=== PATIENT | male | born 1945 | race Caucasian/White ===

== ENCOUNTER 2017-05-06 19:24 | Inpatient (IN) | payer OTHER ==
[~2017-05-06] VITALS: Ht 172.7 cm; Wt 61.3 kg
[~2017-05-06 19:24] MED LIST: COLACE100 MG PO; CYCLOBENZAPRINE10 M3 PO; DEC150 PO; DILANTIN100 MG PO; FERROUS SULF15 MG/M1 PO; FERROUS SULFAT325 M2 PO; FOLIC ACID1 MG PO; HYDROCODONE/ACE1 TA2 PO; LOVASTATIN20 MG PO; MET2.5 PO; MEV20 PO; MSC30 PO; PROTONIX40 MG PO; ROC0.5 PO; TRAMADOL HCL50 MG PO
[2017-05-06 20:23] LABS: BASOPHIL % 1.1 % (0-2); PLATELET COUNT 263 x10^3mcL (130-400); RED CELL DISTRIBUTION WIDTH 14.3 % (11.5-14.5)
[2017-05-06 20:33] LABS: CALCIUM 7.8 mg/dL (8.5-10.1); CARBON DIOXIDE 21.8 mmol/L (21-32); CHLORIDE SERUM 100 mmol/L (98-107); CREATININE SERUM 0.9 mg/dL (0.7-1.3); GLUCOSE SERUM 82 mg/dL (74-106); SODIUM SERUM 131 mmol/L (136-145)
[2017-05-06 20:40] LABS: ALBUMIN 2.4 g/dL (3.4-5.0); ALKALINE PHOSPHATASE 174 U/L (46-116); ALT/SGPT 63 U/L (16-63); AST/SGOT 88 U/L (15-37); BILIRUBIN TOTAL 0.51 mg/dL (0.20-1.00); CHOLESTEROL 111 mg/dL (<200); HDL CHOLESTEROL 38 mg/dL (40-60); TOTAL PROTEIN, SERUM 6.5 g/dL (6.4-8.2)
[2017-05-06 21:12] LABS: T4(THYROXINE) 6.2 ug/dL (4.7-13.3)
[2017-05-06 21:37] LABS: UA SPECIFIC GRAVITY 1.025 (1.005-1.035); microscopic required? YES; urine erythrocyte NEGATIVE (NEGATIVE)
[2017-05-06 22:25] VITALS: BP 98/51
[2017-05-06 22:26] LABS: MAGNESIUM 1.8 mg/dL (1.8-2.4); PHOSPHOROUS 3.6 mg/dL (2.5-4.9)
[2017-05-06 22:37] LABS: AMPHETAMINE QUAL UR NONE DETECTED (NEG <=1000)
[2017-05-06 23:10] VITALS: BP 94/52
[2017-05-07] VITALS (7 sets, daily range): BP systolic 75–133; BP diastolic 44–61
[2017-05-07 05:40] LABS: BASOPHIL % 0.6 % (0-2); PLATELET COUNT 253 x10^3mcL (130-400); RED CELL DISTRIBUTION WIDTH 13.6 % (11.5-14.5)
[2017-05-07 05:51] LABS: CALCIUM 7.7 mg/dL (8.5-10.1); CARBON DIOXIDE 23.6 mmol/L (21-32); CHLORIDE SERUM 104 mmol/L (98-107); CREATININE SERUM 0.9 mg/dL (0.7-1.3); GLUCOSE SERUM 78 mg/dL (74-106); MAGNESIUM 1.8 mg/dL (1.8-2.4); PHOSPHOROUS 3.2 mg/dL (2.5-4.9); POTASSIUM SERUM 3.3 mmol/L (3.5-5.1); SODIUM SERUM 133 mmol/L (136-145)
[2017-05-07] MEDS ORDERED: ZYTIGA250 MG PO (12:57)
[2017-05-07] MEDS ORDERED: PREDNISONE2.5 MG PO (12:57)
[2017-05-07] MEDS ORDERED: APAP/HYDROCODON1 T15 PO (12:59)
[2017-05-07] MEDS ORDERED: CASODEX50 MG PO (13:00)
[2017-05-07] MEDS ORDERED: DIL100 PO (13:01)
[2017-05-07] MEDS ORDERED: ROCALTROL0.5 MCG PO (13:03)
[2017-05-07] MEDS ORDERED: NATURE'S BLEND F1 MG PO (13:05)
[2017-05-08 05:32] LABS: BASOPHIL % 0.7 % (0-2); PLATELET COUNT 190 x10^3mcL (130-400)
[2017-05-08 05:49] LABS: CALCIUM 7.6 mg/dL (8.5-10.1); CARBON DIOXIDE 21.8 mmol/L (21-32); CHLORIDE SERUM 106 mmol/L (98-107); CREATININE SERUM 0.7 mg/dL (0.7-1.3); GLUCOSE SERUM 63 mg/dL (74-106); SODIUM SERUM 137 mmol/L (136-145)
[2017-05-08 06:47] VITALS: BP 120/60
[2017-05-08 08:35] VITALS: BP 128/62
[2017-05-08 13:52] VITALS: BP 134/65
[2017-05-08 17:43] VITALS: BP 116/64
[2017-05-08 20:32] VITALS: BP 114/53
[2017-05-09 05:23] VITALS: BP 129/69
[2017-05-09 06:26] LABS: CALCIUM 7.8 mg/dL (8.5-10.1); CARBON DIOXIDE 22.9 mmol/L (21-32); CHLORIDE SERUM 106 mmol/L (98-107); CREATININE SERUM 0.7 mg/dL (0.7-1.3); GLUCOSE SERUM 86 mg/dL (74-106); POTASSIUM SERUM 3.3 mmol/L (3.5-5.1); SODIUM SERUM 135 mmol/L (136-145)
[2017-05-09 06:37] LABS: BASOPHIL % 0.3 % (0-2); PLATELET COUNT 202 x10^3mcL (130-400)
[2017-05-09 09:57] VITALS: BP 128/69
[2017-05-09 14:09] VITALS: BP 141/71
[2017-05-09 18:09] VITALS: BP 122/82
[2017-05-09 19:43] VITALS: Ht 172.7 cm; Wt 61.3 kg
[2017-05-09 22:06] VITALS: BP 102/60
[2017-05-10 05:43] VITALS: BP 126/66
[2017-05-10 06:21] LABS: BASOPHIL % 0.2 % (0-2); PLATELET COUNT 172 x10^3mcL (130-400); RED CELL DISTRIBUTION WIDTH 13.6 % (11.5-14.5)
[2017-05-10 06:28] LABS: CALCIUM 7.6 mg/dL (8.5-10.1); CHLORIDE SERUM 105 mmol/L (98-107); CREATININE SERUM 0.7 mg/dL (0.7-1.3); GLUCOSE SERUM 74 mg/dL (74-106); POTASSIUM SERUM 3.1 mmol/L (3.5-5.1); SODIUM SERUM 134 mmol/L (136-145)
[2017-05-10 09:21] VITALS: BP 139/64
[2017-05-10 13:10] VITALS: BP 107/68
[2017-05-10 17:58] VITALS: BP 143/67
[2017-05-10 22:04] VITALS: BP 142/79
[2017-05-11 05:46] VITALS: BP 150/53
[2017-05-11 06:24] LABS: CARBON DIOXIDE 22.9 mmol/L (21-32); CHLORIDE SERUM 102 mmol/L (98-107); CREATININE SERUM 0.7 mg/dL (0.7-1.3); GLUCOSE SERUM 126 mg/dL (74-106); POTASSIUM SERUM 3.1 mmol/L (3.5-5.1); SODIUM SERUM 132 mmol/L (136-145)
[2017-05-11 06:37] LABS: PLATELET COUNT 194 x10^3mcL (130-400); RED CELL DISTRIBUTION WIDTH 13.7 % (11.5-14.5)
[2017-05-11 09:41] LABS: BAND NEUTROPHIL 3 % (0-10); BASOPHIL 0 % (0-2); MONOCYTE 1 % (0-7); SEGMENTED NEUTROPHILS 93 % (37-75)
[2017-05-11 09:42] LABS: PLATELET MORPHOLOGY PLATELETS NORMAL
[2017-05-11 10:27] VITALS: BP 113/66
[2017-05-11 14:27] VITALS: BP 118/68
[2017-05-11 20:57] VITALS: BP 104/67
[2017-05-12 05:30] VITALS: BP 100/64
[2017-05-12 06:11] LABS: PLATELET COUNT 141 x10^3mcL (130-400); RED CELL DISTRIBUTION WIDTH 13.7 % (11.5-14.5)
[2017-05-12 06:13] LABS: CALCIUM 8.4 mg/dL (8.5-10.1); CARBON DIOXIDE 26.6 mmol/L (21-32); CHLORIDE SERUM 103 mmol/L (98-107); CREATININE SERUM 0.9 mg/dL (0.7-1.3); GLUCOSE SERUM 150 mg/dL (74-106); POTASSIUM SERUM 4.1 mmol/L (3.5-5.1); SODIUM SERUM 134 mmol/L (136-145)
[2017-05-12 09:02] VITALS: BP 148/67
[2017-05-12 11:37] LABS: BAND NEUTROPHIL 8 % (0-10); BASOPHIL 0 % (0-2); MONOCYTE 6 % (0-7); SEGMENTED NEUTROPHILS 83 % (37-75)
[2017-05-12 11:38] LABS: PLATELET MORPHOLOGY PLATELETS NORMAL; rbc morphology (normal/abnorm) NORMAL (NORMAL)
[2017-05-12 12:57] VITALS: BP 115/64
[2017-05-12 16:36] VITALS: BP 124/64
[2017-05-12 16:37] VITALS: BP 124/64
[2017-05-12 21:01] VITALS: BP 130/82
[2017-05-13 05:28] VITALS: BP 128/72
[2017-05-13 06:24] LABS: CALCIUM 8.3 mg/dL (8.5-10.1); CARBON DIOXIDE 27.3 mmol/L (21-32); CHLORIDE SERUM 104 mmol/L (98-107); CREATININE SERUM 0.8 mg/dL (0.7-1.3); GLUCOSE SERUM 132 mg/dL (74-106); POTASSIUM SERUM 4.5 mmol/L (3.5-5.1); SODIUM SERUM 138 mmol/L (136-145)
[2017-05-13 09:12] VITALS: BP 127/76
[2017-05-13 13:27] VITALS: BP 120/80
[2017-05-13 18:00] VITALS: BP 117/62
[2017-05-13 21:28] VITALS: BP 123/69
[2017-05-14 06:08] VITALS: BP 118/70
[2017-05-14 06:15] LABS: PLATELET COUNT 206 x10^3mcL (130-400); RED CELL DISTRIBUTION WIDTH 14.3 % (11.5-14.5)
[2017-05-14 06:24] LABS: CALCIUM 8.5 mg/dL (8.5-10.1); CARBON DIOXIDE 27.6 mmol/L (21-32); CHLORIDE SERUM 102 mmol/L (98-107); CREATININE SERUM 0.8 mg/dL (0.7-1.3); GLUCOSE SERUM 91 mg/dL (74-106); POTASSIUM SERUM 4.5 mmol/L (3.5-5.1); SODIUM SERUM 136 mmol/L (136-145)
[2017-05-14 10:28] VITALS: BP 132/78
[2017-05-14 13:42] LABS: BAND NEUTROPHIL 1 % (0-10); BASOPHIL 0 % (0-2); MONOCYTE 8 % (0-7); SEGMENTED NEUTROPHILS 85 % (37-75)
[2017-05-14 13:44] LABS: PLATELET MORPHOLOGY PLATELETS DECREASED; rbc morphology (normal/abnorm) ABNORMAL (NORMAL)
[2017-05-14] MEDS ORDERED: CLINDAMYCIN HC300 MG PO (15:37)
[2017-05-14 16:23] VITALS: BP 132/78
== END 2017-05-14 18:16 | disposition home or self-care (01) | DRG 871 ==
LOC: ED 19:24 → DU 21:23 → MU 21:23 → IC 21:23 → DU 22:14 → IC 05-07 00:47 → DU 05-08 05:50 → MU 05-14 07:19
PROVIDERS: Emergency Medicine; Family Medicine; ADMIT Family Medicine
PROC: 05HN33Z Insertion of Infusion Device into Left Internal Jugular Vein, Percutaneous Approach (ICD-10-PCS; principal; 2017-05-07)
PROC: B544ZZA Ultrasonography of Left Jugular Veins, Guidance (ICD-10-PCS; 2017-05-07)
DX: A41.9 Sepsis, unspecified organism (principal); R65.21 Severe sepsis with septic shock; J69.0 Pneumonitis due to inhalation of food and vomit; N17.0 Acute kidney failure with tubular necrosis; E43 Unspecified severe protein-calorie malnutrition; N39.0 Urinary tract infection, site not specified; E87.1 Hypo-osmolality and hyponatremia; C78.00 Secondary malignant neoplasm of unspecified lung; C79.51 Secondary malignant neoplasm of bone; E86.0 Dehydration; E87.6 Hypokalemia; C61 Malignant neoplasm of prostate; J44.9 Chronic obstructive pulmonary disease, unspecified; D64.9 Anemia, unspecified; M06.9 Rheumatoid arthritis, unspecified; I10 Essential (primary) hypertension; G40.909 Epilepsy, unspecified, not intractable, without status epilepticus; Z68.20 Body mass index [BMI] 20.0-20.9, adult; Z87.891 Personal history of nicotine dependence; Z86.73 Personal history of transient ischemic attack (TIA), and cerebral infarction without residual deficits
CPT/HCPCS: 36556; 36600; 83880; 97110-GP; 97116-GP; 97530-GP; J0696; J1642; J1885; J1940; J2060; J2270; J2543; J2920; J2930; J3480; J3490; J7030; J7040; J7620; J7633; J8610; Q0092; Q9967

== ENCOUNTER 2018-10-02 15:38 | Inpatient (IN) | payer OTHER ==
[~2018-10-02] VITALS: Ht 172.7 cm; Wt 64.4 kg
[~2018-10-02 15:38] MED LIST changes: +APAP/HYDROCODON1 T15 PO; +CASODEX50 MG PO; +CLINDAMYCIN HC300 MG PO; +DIL100 PO; +NATURE'S BLEND F1 MG PO; +PREDNISONE2.5 MG PO; +ROCALTROL0.5 MCG PO; +ZYTIGA250 MG PO
[2018-10-02 15:53] VITALS: Ht 172.7 cm; Wt 64.4 kg
[2018-10-02 17:18] LABS: PLATELET COUNT 190 x10^3mcL (130-400); RED CELL DISTRIBUTION WIDTH 17.7 % (11.5-14.5)
[2018-10-02 17:37] LABS: ALKALINE PHOSPHATASE 134 U/L (46-116); ALT/SGPT 12 U/L (16-63); AST/SGOT 32 U/L (15-37); BILIRUBIN TOTAL 0.8 mg/dL (0.20-1.00); CALCIUM 7.9 mg/dL (8.5-10.1); CARBON DIOXIDE 20.9 mmol/L (21-32); CHLORIDE SERUM 96 mmol/L (98-107); CREATININE SERUM 2.2 mg/dL (0.7-1.3); GLUCOSE SERUM 70 mg/dL (74-106); SODIUM SERUM 132 mmol/L (136-145)
[2018-10-02 17:42] LABS: POTASSIUM SERUM 2.6 mmol/L (3.5-5.1); TOTAL PROTEIN, SERUM 5.9 g/dL (6.4-8.2)
[2018-10-02 18:30] LABS: microscopic required? YES; urine erythrocyte 3+ (NEGATIVE)
[2018-10-02 19:52] LABS: MAGNESIUM 1.7 mg/dL (1.8-2.4); PHOSPHOROUS 4.3 mg/dL (2.5-4.9)
[2018-10-02 20:44] VITALS: BP 106/59
[2018-10-02] MEDS ORDERED: FLOMAX0.4 MG PO (20:58)
[2018-10-03 01:20] VITALS: BP 106/59
[2018-10-03 05:54] VITALS: BP 136/68
[2018-10-03 06:36] LABS: CALCIUM 7.7 mg/dL (8.5-10.1); CHLORIDE SERUM 98 mmol/L (98-107); CREATININE SERUM 2.2 mg/dL (0.7-1.3); GLUCOSE SERUM 70 mg/dL (74-106); MAGNESIUM 1.5 mg/dL (1.8-2.4); PHOSPHOROUS 4.1 mg/dL (2.5-4.9); POTASSIUM SERUM 3.1 mmol/L (3.5-5.1); SODIUM SERUM 133 mmol/L (136-145)
[2018-10-03 06:44] LABS: PLATELET COUNT 212 x10^3mcL (130-400)
[2018-10-03 07:16] LABS: RED CELL DISTRIBUTION WIDTH 18.1 % (11.5-14.5)
[2018-10-03 08:11] VITALS: BP 128/74
[2018-10-03 09:05] LABS: BAND NEUTROPHIL 4 % (0-10); SEGMENTED NEUTROPHILS 86 % (37-75)
[2018-10-03 09:08] LABS: burr cell (echinocyte) 1+; rbc morphology (normal/abnorm) ABNORMAL (NORMAL)
[2018-10-03 12:11] VITALS: BP 117/65
[2018-10-03 16:43] VITALS: BP 101/47
[2018-10-03 21:48] VITALS: BP 96/47
[2018-10-04 05:29] VITALS: BP 101/39
[2018-10-04 06:57] LABS: PLATELET COUNT 133 x10^3mcL (130-400)
[2018-10-04 07:00] LABS: RED CELL DISTRIBUTION WIDTH 18.5 % (11.5-14.5)
[2018-10-04 07:11] LABS: CALCIUM 7.6 mg/dL (8.5-10.1); CARBON DIOXIDE 20.3 mmol/L (21-32); CHLORIDE SERUM 101 mmol/L (98-107); CREATININE SERUM 2.3 mg/dL (0.7-1.3); GLUCOSE SERUM 94 mg/dL (74-106); MAGNESIUM 1.8 mg/dL (1.8-2.4); PHOSPHOROUS 3.9 mg/dL (2.5-4.9); SODIUM SERUM 134 mmol/L (136-145)
[2018-10-04 07:48] LABS: POTASSIUM SERUM 2.8 mmol/L (3.5-5.1)
[2018-10-04 10:01] LABS: BAND NEUTROPHIL 2 % (0-10); SEGMENTED NEUTROPHILS 86 % (37-75); burr cell (echinocyte) 1+; rbc morphology (normal/abnorm) ABNORMAL (NORMAL)
[2018-10-04 10:02] LABS: PLATELET MORPHOLOGY PLATELETS DECREASED
[2018-10-04 10:20] VITALS: BP 106/66
[2018-10-04 13:55] VITALS: BP 93/49
[2018-10-04 18:25] VITALS: BP 100/57
[2018-10-04 22:16] VITALS: BP 110/52
[2018-10-05 05:34] VITALS: BP 128/48
[2018-10-05 07:39] LABS: CARBON DIOXIDE 19.9 mmol/L (21-32); CHLORIDE SERUM 99 mmol/L (98-107); CREATININE SERUM 2.3 mg/dL (0.7-1.3); GLUCOSE SERUM 102 mg/dL (74-106); MAGNESIUM 1.9 mg/dL (1.8-2.4); PHOSPHOROUS 3.2 mg/dL (2.5-4.9); SODIUM SERUM 131 mmol/L (136-145)
[2018-10-05 07:51] LABS: POTASSIUM SERUM 2.4 mmol/L (3.5-5.1)
[2018-10-05 08:33] LABS: PLATELET COUNT 92 x10^3mcL (130-400); RED CELL DISTRIBUTION WIDTH 16.2 % (11.5-14.5)
[2018-10-05 08:34] LABS: BASOPHIL % 0 % (0-2)
[2018-10-05 10:02] VITALS: BP 106/55
[2018-10-05 12:51] VITALS: BP 105/53
[2018-10-05 18:00] VITALS: BP 101/50
[2018-10-05 21:36] VITALS: BP 111/43
[2018-10-06 06:16] VITALS: BP 115/51
[2018-10-06 07:17] LABS: CALCIUM 8.7 mg/dL (8.5-10.1); CARBON DIOXIDE 21.5 mmol/L (21-32); CHLORIDE SERUM 101 mmol/L (98-107); CREATININE SERUM 2.2 mg/dL (0.7-1.3); GLUCOSE SERUM 101 mg/dL (74-106); SODIUM SERUM 133 mmol/L (136-145)
[2018-10-06 07:20] LABS: PLATELET COUNT 64 x10^3mcL (130-400); POTASSIUM SERUM 2.9 mmol/L (3.5-5.1); RED CELL DISTRIBUTION WIDTH 16.9 % (11.5-14.5)
[2018-10-06 10:18] VITALS: BP 114/55
[2018-10-06 13:13] LABS: SEGMENTED NEUTROPHILS 80 % (37-75)
[2018-10-06 13:14] LABS: MONOCYTE 2 % (0-7); rbc morphology (normal/abnorm) ABNORMAL (NORMAL)
[2018-10-06 13:15] LABS: PLATELET MORPHOLOGY PLATELETS DECREASED
[2018-10-06 13:46] VITALS: BP 109/53
[2018-10-06 18:05] VITALS: BP 106/54
[2018-10-06 21:07] VITALS: BP 123/69
[2018-10-07 05:44] VITALS: BP 116/56
[2018-10-07 07:31] LABS: CALCIUM 8.5 mg/dL (8.5-10.1); CARBON DIOXIDE 21.4 mmol/L (21-32); CHLORIDE SERUM 101 mmol/L (98-107); GLUCOSE SERUM 101 mg/dL (74-106); POTASSIUM SERUM 3.2 mmol/L (3.5-5.1); SODIUM SERUM 128 mmol/L (136-145)
[2018-10-07 08:42] VITALS: BP 124/80
[2018-10-07 11:27] LABS: SEGMENTED NEUTROPHILS 59 % (37-75)
[2018-10-07 11:28] LABS: ATYPICAL LYMPH 3 %; BAND NEUTROPHIL 2 % (0-10); MONOCYTE 3 % (0-7); rbc morphology (normal/abnorm) ABNORMAL (NORMAL)
[2018-10-07 11:29] LABS: PLATELET MORPHOLOGY PLATELETS DECREASED
[2018-10-07 11:31] LABS: PLATELET COUNT 34 x10^3mcL (130-400)
[2018-10-07 12:32] VITALS: BP 114/59
[2018-10-07 14:00] LABS: PLATELET COUNT 29 x10^3mcL (130-400); RED CELL DISTRIBUTION WIDTH 16.7 % (11.5-14.5)
[2018-10-07 14:48] LABS: BAND NEUTROPHIL 8 % (0-10); BASOPHIL 0 % (0-2); MONOCYTE 3 % (0-7); SEGMENTED NEUTROPHILS 55 % (37-75); burr cell (echinocyte) 1+; rbc morphology (normal/abnorm) ABNORMAL (NORMAL)
[2018-10-07 14:49] LABS: PLATELET MORPHOLOGY PLATELETS DECREASED
[2018-10-07 16:57] VITALS: BP 134/60
[2018-10-07 21:17] VITALS: BP 109/69
[2018-10-08] VITALS (7 sets, daily range): BP systolic 94–141; BP diastolic 54–71
[2018-10-08 06:09] LABS: CALCIUM 8.8 mg/dL (8.5-10.1); CARBON DIOXIDE 20.5 mmol/L (21-32); CHLORIDE SERUM 101 mmol/L (98-107); CREATININE SERUM 1.9 mg/dL (0.7-1.3); GLUCOSE SERUM 95 mg/dL (74-106); MAGNESIUM 1.7 mg/dL (1.8-2.4); PHOSPHOROUS 4.6 mg/dL (2.5-4.9); POTASSIUM SERUM 3.9 mmol/L (3.5-5.1); SODIUM SERUM 133 mmol/L (136-145)
[2018-10-08 06:22] LABS: RED CELL DISTRIBUTION WIDTH 17.1 % (11.5-14.5)
[2018-10-08 10:43] LABS: PLATELET COUNT 25 x10^3mcL (130-400)
[2018-10-08 13:30] LABS: BAND NEUTROPHIL 2 % (0-10)
[2018-10-08 13:31] LABS: ATYPICAL LYMPH 2 %; MONOCYTE 3 % (0-7); SEGMENTED NEUTROPHILS 47 % (37-75)
[2018-10-08 13:33] LABS: METAMYELOCTE 1 % (0-2)
[2018-10-08 13:34] LABS: rbc morphology (normal/abnorm) ABNORMAL (NORMAL)
[2018-10-08 13:35] LABS: PLATELET MORPHOLOGY PLATELETS DECREASED
[2018-10-09] VITALS (7 sets, daily range): BP systolic 99–128; BP diastolic 64–75
[2018-10-09 06:49] LABS: CALCIUM 8.9 mg/dL (8.5-10.1); CARBON DIOXIDE 20.4 mmol/L (21-32); CHLORIDE SERUM 102 mmol/L (98-107); CREATININE SERUM 1.9 mg/dL (0.7-1.3); GLUCOSE SERUM 86 mg/dL (74-106); MAGNESIUM 1.7 mg/dL (1.8-2.4); POTASSIUM SERUM 4.1 mmol/L (3.5-5.1); SODIUM SERUM 136 mmol/L (136-145)
[2018-10-09 14:18] LABS: RED CELL DISTRIBUTION WIDTH 17.5 % (11.5-14.5)
[2018-10-09 14:55] LABS: ATYPICAL LYMPH 2 %; BAND NEUTROPHIL 0 % (0-10); BASOPHIL 0 % (0-2); MONOCYTE 36 % (0-7); SEGMENTED NEUTROPHILS 26 % (37-75)
[2018-10-09 14:56] LABS: PATH REVIEW for HEMA NO; PLATELET MORPHOLOGY D; burr cell (echinocyte) 2+; rbc morphology (normal/abnorm) ABNORMAL (NORMAL)
[2018-10-09 15:03] LABS: PLATELET COUNT 6 x10^3mcL (130-400)
[2018-10-10] VITALS (7 sets, daily range): BP systolic 94–119; BP diastolic 52–63
[2018-10-10 03:52] LABS: CARBON DIOXIDE 19.5 mmol/L (21-32); CHLORIDE SERUM 103 mmol/L (98-107); GLUCOSE SERUM 103 mg/dL (74-106); POTASSIUM SERUM 3.8 mmol/L (3.5-5.1); SODIUM SERUM 135 mmol/L (136-145)
[2018-10-10 03:56] LABS: PHOSPHOROUS 5.8 mg/dL (2.5-4.9)
[2018-10-10 04:06] LABS: RED CELL DISTRIBUTION WIDTH 17.4 % (11.5-14.5)
[2018-10-10 04:10] LABS: PLATELET COUNT 26 x10^3mcL (130-400)
[2018-10-10 05:02] LABS: SEGMENTED NEUTROPHILS 5 % (37-75)
[2018-10-10 05:05] LABS: burr cell (echinocyte) 1+; rbc morphology (normal/abnorm) ABNORMAL (NORMAL)
[2018-10-11 03:21] VITALS: BP 154/67
== END 2018-10-11 11:41 | disposition expired | DRG 177 ==
LOC: ED 15:38 → MU 18:40 → DU 18:40
PROVIDERS: Emergency Medicine; Internal Medicine; ADMIT Family Medicine
PROC: 30233R1 Transfusion of Nonautologous Platelets into Peripheral Vein, Percutaneous Approach (ICD-10-PCS; 2018-10-07)
PROC: 30233N1 Transfusion of Nonautologous Red Blood Cells into Peripheral Vein, Percutaneous Approach (ICD-10-PCS; principal; 2018-10-08)
DX: J69.0 Pneumonitis due to inhalation of food and vomit (principal); D61.810 Antineoplastic chemotherapy induced pancytopenia; N17.0 Acute kidney failure with tubular necrosis; E43 Unspecified severe protein-calorie malnutrition; G93.41 Metabolic encephalopathy; J96.01 Acute respiratory failure with hypoxia; R53.2 Functional quadriplegia; Z68.1 Body mass index [BMI] 19.9 or less, adult; N39.0 Urinary tract infection, site not specified; E87.1 Hypo-osmolality and hyponatremia; C78.00 Secondary malignant neoplasm of unspecified lung; C61 Malignant neoplasm of prostate; E86.0 Dehydration; E87.6 Hypokalemia; I12.9 Hypertensive chronic kidney disease with stage 1 through stage 4 chronic kidney disease, or unspecified chronic kidney disease; N18.9 Chronic kidney disease, unspecified; E83.42 Hypomagnesemia; M06.9 Rheumatoid arthritis, unspecified; D64.9 Anemia, unspecified; R80.9 Proteinuria, unspecified; J44.9 Chronic obstructive pulmonary disease, unspecified; G40.909 Epilepsy, unspecified, not intractable, without status epilepticus; Z51.5 Encounter for palliative care; Z66 Do not resuscitate; Z99.3 Dependence on wheelchair; Z87.891 Personal history of nicotine dependence; Z86.73 Personal history of transient ischemic attack (TIA), and cerebral infarction without residual deficits
CPT/HCPCS: 36600; 82962; 92526-GN; 92610; 94150; 97110-GP; J0696; J1170; J1200; J1442; J1940; J1956; J2270; J2543; J2920; J3370; J3475; J3480; J7030; J7040; J7050; J7070; J7512; J7620; P9016; P9035; Q0092; Q0163